=== PATIENT | female | born 2000 | race Two or more races ===

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

== ENCOUNTER 2020-05-10 01:26 | Emergency (ER) | payer OTHER ==
[~2020-05-10] VITALS: Ht 157.5 cm; Wt 49.9 kg
[~2020-05-10 01:26] MED LIST: LEVSIN/SL0.125 MG SL; PEPCID40 MG PO; ZOFRAN4 MG PO; ZOLOFT100 MG
[2020-05-10] MEDS ORDERED: ATIVAN2 M1 PO (01:38)
== END 2020-05-10 12:30 | disposition home or self-care (01) ==
LOC: ER 01:26
DX: T42.4X4A Poisoning by benzodiazepines, undetermined, initial encounter (principal); R68.89 Other general symptoms and signs; R11.11 Vomiting without nausea; F41.8 Other specified anxiety disorders; Y92.018 Other place in single-family (private) house as the place of occurrence of the external cause

== ENCOUNTER 2020-08-16 22:03 | Emergency (ER) | payer OTHER ==
[~2020-08-16] VITALS: Ht 154.9 cm; Wt 48.5 kg
[~2020-08-16 22:03] MED LIST changes: +ATIVAN2 M1 PO
[2020-08-16] MEDS ORDERED: PROZAC20 MG (22:25)
[2020-08-16] MEDS ORDERED: [UNRECOGNIZED DRUG - OTHER] (22:26)
[2020-08-16] MEDS ORDERED: TRAZODONE HCL150 MG (22:26)
[2020-08-16] MEDS ORDERED: BUSPIRONE HCL7.5 MG (22:29)
== END 2020-08-17 02:25 | disposition home or self-care (01) ==
LOC: ER 22:03 → EMR PED 22:28 → ER 22:28 → EMR PED 08-17 02:25
DX: J02.9 Acute pharyngitis, unspecified (principal); R51.9 Headache, unspecified; Z03.818 Encounter for observation for suspected exposure to other biological agents ruled out

== ENCOUNTER → 2022-05-21 | Emergency (ER) | payer OTHER ==
[~2022-05-21] VITALS: Ht 154.9 cm; Wt 53.1 kg
[~2022-05-21] MED LIST changes: +BUSPIRONE HCL7.5 MG; +PROZAC20 MG; +TRAZODONE HCL150 MG; +[UNRECOGNIZED DRUG - OTHER]
== END | disposition home or self-care (01) ==
LOC: ER 20:41
DX: U07.1 COVID-19 (principal)

== ENCOUNTER 2022-07-06 15:34 | Emergency (ER) | payer OTHER ==
[~2022-07-06] VITALS: Ht 157.5 cm; Wt 51.3 kg
[2022-07-06] MEDS ORDERED: SINUS RINSE ST1 EACH NS (19:29)
[2022-07-06] MEDS ORDERED: FLONASE ALLERG9.9 ML NASAL (19:29)
[2022-07-06] MEDS ORDERED: ZITHROMAX500 MG PO (19:29)
== END 2022-07-06 19:33 | disposition home or self-care (01) ==
LOC: ER 15:34
DX: J00 Acute nasopharyngitis [common cold] (principal); Z20.822 Contact with and (suspected) exposure to COVID-19

== ENCOUNTER 2025-04-17 12:42 | Emergency (ER) | payer OTHER ==
[~2025-04-17] VITALS: Ht 154.9 cm; Wt 49.9 kg
[~2025-04-17 12:42] MED LIST changes: +FLONASE ALLERG9.9 ML NASAL; +SINUS RINSE ST1 EACH NS; +ZITHROMAX500 MG PO
[2025-04-17 14:18] LABS: EOS # 0.04 (0.04-0.54); EOS % 0.8 % (0.7-7.0); HEMATOCRIT 41.8 % (34.1-44.9); HEMOGLOBIN 14.2 g/dL (11.2-15.7); LYMPH # 0.99 (1.18-3.74); LYMPH % 19.6 % (19.3-53.1); MEAN CORPUSCULAR HEMOGLOBIN 29.9 pg (25.6-32.2); MONO # 1.16 (0.24-0.82); NEUT % 55.3 % (34.0-71.1); PLATELET COUNT 249 K/uL (163-369); RED BLOOD COUNT 4.75 M/uL (3.93-5.22); RED CELL DISTRIBUTION WIDTH 13.2 % (11.6-14.4)
[2025-04-17 14:41] LABS: COVID-19 AG NEGATIVE (NEGATIVE)
[2025-04-17 14:42] LABS: INFLUENZA A AG NEGATIVE (NEGATIVE); INFLUENZA B AG POSITIVE (NEGATIVE)
[2025-04-17 15:27] LABS: MONO % 22.9 % (4.7-12.5)
== END 2025-04-17 15:07 | disposition home or self-care (01) ==
LOC: ER 12:49
DX: R05.8 Other specified cough (principal); Z20.822 Contact with and (suspected) exposure to COVID-19

== ENCOUNTER 2025-07-24 18:46 | Emergency (ER) | payer OTHER ==
[~2025-07-24] VITALS: Ht 154.9 cm; Wt 49.9 kg
[2025-07-24 20:03] VITALS: BP 117/73; O2SAT 98
[2025-07-24] MEDS ORDERED: PHENAZOPYRIDINE HCL 100 MG TABLET PO ONE ×2 (20:15→21:02)
[2025-07-24 21:30] LABS: URINE APPEARANCE Cloudy; URINE BILIRRUBIN Negative (NEGATIVE); URINE BLOOD Moderate; URINE COLOR Yellow; URINE GLUCOSE Negative (NEGATIVE); URINE KETONE Negative (NEGATIVE); URINE LEUKOCYTE Large; URINE NITRATE Negative; URINE PROTEIN Negative (NEGATIVE); URINE UROBILINOGEN 0.2 E.U./dl
[2025-07-24 21:34] LABS: URINE BACTERIA 749.9 uL (0.0-1933); URINE EPITHELIAL CELLS 2.1 uL (0.0-38.8); URINE RBC 7.0 uL (0.0-20.8); URINE WBC 970.1 uL (0.0-23.2)
[2025-07-24 21:59] LABS: URINE CAST 0.00 uL (0.0-1.40)
[2025-07-24 22:01] LABS: BUN CREA RATIO 24.0 (7.0-25.0); CREATININE SERUM 0.71 mg/dL (0.55-1.02); GFR 100.3; GLUCOSE FASTING 91.0 mg/dL (65-100); OSMOLALITY SERUM 281.0 MOSM/KG (275-295)
[2025-07-24] MEDS ORDERED: PYRIDIUM100 M1 PO (22:23)
[2025-07-24] MEDS ORDERED: MACROBID 100 M100 MG PO (22:23)
[2025-07-24 22:30] LABS: BASO % 0.5 % (0.1-1.2); EOS # 0.29 (0.04-0.54); EOS % 2.3 % (0.7-7.0); LYMPH # 2.51 (1.18-3.74); LYMPH % 20.1 % (19.3-53.1); MEAN PLATELET VOLUME 9.10 fl (9.4-12.4); MONO # 0.98 (0.24-0.82); MONO % 7.9 % (4.7-12.5); NEUT # 8.60 (1.56-6.13); NEUT % 69.0 % (34.0-71.1); RED CELL DISTRIBUTION WIDTH 13.1 % (11.6-14.4)
[2025-07-24] MEDS ORDERED: CEFTRIAXONE SODIUM 1,000 MG VIAL IM ONE (22:45)
[2025-07-24] MEDS ORDERED: CEFTRIAXONE SODIUM 1,000 MG VIAL ONE (22:48)
== END 2025-07-24 22:53 | disposition home or self-care (01) ==
LOC: ER 18:46
PROVIDERS: General Practice
DX: N39.0 Urinary tract infection, site not specified (principal); R30.0 Dysuria; R39.15 Urgency of urination

== ENCOUNTER 2025-09-29 19:51 | Emergency (ER) | payer OTHER ==
[~2025-09-29] VITALS: Ht 154.9 cm; Wt 49.9 kg
[~2025-09-29 19:51] MED LIST changes: +MACROBID 100 M100 MG PO; +PYRIDIUM100 M1 PO
[2025-09-29] MEDS ORDERED: PROMETHAZINE HCL 25 MG/ML AMPUL IM STA (23:26)
[2025-09-29] MEDS ORDERED: FAMOTIDINE/PF 20 MG/2 ML VIAL IV STA (23:26)
[2025-09-29] MEDS ORDERED: FAMOTIDINE/PF 20 MG/2 ML VIAL ONE (23:36)
[2025-09-29] MEDS ORDERED: PROMETHAZINE HCL 25 MG/ML AMPUL ONE (23:36)
[2025-09-30 00:38] LABS: BASO % 0.9 % (0.1-1.2); EOS # 0.41 (0.04-0.54); EOS % 4.7 % (0.7-7.0); LYMPH # 3.04 (1.18-3.74); LYMPH % 35.1 % (19.3-53.1); MEAN PLATELET VOLUME 9.10 fl (9.4-12.4); MONO # 0.81 (0.24-0.82); MONO % 9.4 % (4.7-12.5); NEUT # 4.31 (1.56-6.13); NEUT % 49.8 % (34.0-71.1); RED CELL DISTRIBUTION WIDTH 13.4 % (11.6-14.4)
[2025-09-30 01:02] LABS: BUN CREA RATIO 17.0 (7.0-25.0); CREATININE SERUM 0.83 mg/dL (0.55-1.02); GFR 83.76; GLUCOSE FASTING 92.0 mg/dL (65-100); OSMOLALITY SERUM 281.0 MOSM/KG (275-295)
[2025-09-30 01:15] LABS: URINE APPEARANCE Clear; URINE BILIRRUBIN Negative (NEGATIVE); URINE BLOOD Moderate; URINE COLOR Yellow; URINE GLUCOSE Negative (NEGATIVE); URINE KETONE 15 (NEGATIVE); URINE LEUKOCYTE Trace; URINE NITRATE Negative; URINE PROTEIN Negative (NEGATIVE); URINE UROBILINOGEN 1.0 E.U./dl
[2025-09-30 01:19] LABS: URINE BACTERIA 1571.7 uL (0.0-1933); URINE EPITHELIAL CELLS 24.0 uL (0.0-38.8); URINE RBC 29.6 uL (0.0-20.8); URINE WBC 17.7 uL (0.0-23.2)
[2025-09-30 01:28] LABS: COVID-19 AG NEGATIVE (NEGATIVE)
[2025-09-30 02:11] LABS: URINE CAST 0.00 uL (0.0-1.40)
== END 2025-09-30 03:05 | disposition home or self-care (01) ==
LOC: ER 19:52
PROVIDERS: General Practice
DX: R11.2 Nausea with vomiting, unspecified (principal); R10.20 Pelvic and perineal pain unspecified side; Z20.822 Contact with and (suspected) exposure to COVID-19